=== PATIENT | female | born 1975 | race Caucasian/White ===

== ENCOUNTER 2022-06-22 00:50 | Emergency (ER) | payer OTHER, BC ==
[2022-06-22 01:02] VITALS: BP 123/85; PULSE 76; RESP 18; TEMP 98.4
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
== END 2022-06-22 01:47 | disposition home or self-care (01) ==
LOC: EC 00:50
DX: S09.90XA Unspecified injury of head, initial encounter (principal); V89.2XXA Person injured in unspecified motor-vehicle accident, traffic, initial encounter; Y92.410 Unspecified street and highway as the place of occurrence of the external cause
CPT/HCPCS: 70450; 72125; 99284